=== PATIENT | male | born 1990 | race Two or more races ===

== ENCOUNTER 2021-04-08 18:12 | Emergency (ER) | payer BC, OTHER ==
[~2021-04-08] VITALS: Ht 175.3 cm; Wt 93.0 kg
[2021-04-08] MEDS ORDERED: CLINDAMYCIN 600 MG/4 ML VL IM ONE (18:15)
[2021-04-08] MEDS ORDERED: cefTRIAXone W LIDOCAINE 1 GM IM IM ONE (18:15)
[2021-04-08] MEDS ORDERED: CEPHALEXIN 250 MG CAP PO ONE (18:30)
[2021-04-08 18:33] VITALS: BP 148/90
== END 2021-04-08 18:47 | disposition home or self-care (01) ==
LOC: ER 18:12
DX: L03.116 Cellulitis of left lower limb (principal)
CPT/HCPCS: 96372; 99283; J0696